=== PATIENT | male | born 1945 | race Caucasian/White ===

== ENCOUNTER 2017-01-06 10:29 | Day surgery (SDC) | payer MEDICARE, OTHER ==
[~2017-01-06] VITALS: Ht 172.7 cm; Wt 128.4 kg
[~2017-01-06 10:29] MED LIST: 0.9% Sodium Chloride 1,000 ML IV SCH; ATOR40TA69 PO; GLIP10TA10 PO; HYG25 PO; LISI40TA PO; METF1000 PO; PIOG45TA18 PO; Sodium Chloride LOK Flush 10 mL Syringe IV PRN; fentaNYL-PF 50 mCg/mL 2 mL Inj IVPUSH PRN
[2017-01-06] MEDS ORDERED: fentaNYL-PF 50 mCg/mL 2 mL Inj ONE (10:30)
[2017-01-06] MEDS ORDERED: Propofol 10,000 mCg/mL 20 mL Inj ONE (10:30)
[2017-01-06 11:00] VITALS: BP 118/71; PULSE 76; RESP 16; O2SAT 92
--- NOTE | 2017-01-06 11:15 | PCM.HPANE ---
Patient Data Surgeon Admitting Provider: Attending Provider:Grover Charles MD Primary Care Physician:Reji Mike MD Other Provider: Reason for Visit Screening Colonoscopy Ht/WT & BMI Height (Feet): 5 Height (Inches): 8 Weight (Kilograms): 128.37 Body Mass Index 42.00 Allergies Coded Allergies: No Known Drug Allergies (Verified Allergy, Unknown, 01/06/17) Past Anesthesia History Anesthesia History: Denies:: Abnormal Airway, Anesthesia Reactions, Difficult Intubation, Fam Anesthesia Reaction, Fam Malignant Hypertherm, Malignant Hyperthermia Diabetes History Hx Diabetes?: Yes Current Bedside Blood Glucose: 145 MRSA MRSA: No Medications Hypertension Medication: Yes Home Meds Incl Beta Pancho: No Reported Medications Pioglitazone 45 Mg [id number] Mg PO DAILY Ref 0 01/05/17 Metformin (Glucophage)1,000 Mg Tablet1,000 Mg PO BID Ref 0 01/05/17 Lisinopril 40 Mg [id number] Mg PO DAILY 30 Days Ref 0 01/05/17 Glipizide 10 Mg [id number] Mg PO BID 30 Days 01/05/17 Chlorthalidone 25 Mg [id number] Mg PO DAILY #30 TABLET 01/05/17 Atorvastatin Calcium 40 Mg [id number] Mg PO DAILY Ref 0 01/05/17 History HEENT History: Denies:: Abnormal Airway Difficult Intubation Dysphagia Hearing Problem Hx of Heart Problems?: Yes Cardiovascular History: Positive for:: Hypertension Denies:: AICD Atrial Fibrillation Chest Pain Pacemaker Valvular Heart Disease Other Cardiac History: NO history of CAD Hx of Respiratory Problem?: No Respiratory History: Denies:: Asthma COPD Cough Hemoptysis Pneumonia Tuberculosis Hx Neurologic Problems?: No Neurological History: Denies:: CVA Hx of GI Problems?: Yes Gastrointestinal History: Denies:: Cirrhosis Diverticulitis Gall Bladder Disease Gastroesphageal Reflux Hiatal Hernia Liver Disease Rectal Bleeding Hx of Problems?: No Musculoskeletal History: Denies:: Fibromyalgia Joint Replacement Psycho Social History: Denies:: Anxiety Hx Depression Hx Surgeries?: Yes (APPY) Hx Any Other Health Problems?: Yes Hx Diabetes: YesBedside Blood Glucose: 145 Other Pertinent History: DIABETES-TYPE II Hx Alcohol Use: No Stop/Bang Treated for Sleep Apnea?: No (SCHEDULED FOR A SLEEP STUDY) Do You Have a CPAP Machine?: No S-Snoring: Do You Snore Loudly: Yes T-Tired: feel tired, fatigued: Yes O-Obsered: Observed not breath: Yes P-Blood Pressure: treated: Yes B- Body Mass Index > 35 kg/m2: Yes A- Age over 50: Yes N- Neck Large Circumference: Yes G- Gender Male: Yes EPIFANIO Total Score: 8 EPIFANIO Risk Assessment: High Risk, =/>3 Yes Risk Assessment Category Category 1A: Patient has history of documented sleep apnea, and HAS NOT received any narcotic, sedative or anesthesia administration during this stay. Category 1B: Patient has history of documented sleep apnea, and HAS received any narcotic , sedative or anesthesia administration during this stay Category 2: Patient has SUSPECTED Obstructive Sleep Apnea, and HAS received any narcotic , sedative or anesthesia administration during this stay. Category 3: Patient has SUSPECTED Obstructive Sleep Apnea and HAS NOT received narcotic, sedative or anesthesia administration during this stay. Category 4: Outpatient in Procedural Areas with known sleep apnea or who screen positive for High Risk via the STOP/BANG questionnaire. Exam Exam Vital Signs Vital Signs Date Time Temp Pulse Resp B/P Pulse Ox O2 Delivery O2 Flow Rate FiO2 01/06/17 11:00 76 16 118/71 92 Room Air General Appearance: Alert, Oriented X3, Cooperative, No Acute Distress HEENT/AIRWAY: MP 2, Other (thick neck) Lungs: Clear to Auscultation, Normal Air Movement Heart: Exam Unremarkable, Regular Rate/Rhythm, No Murmurs/Rubs/Gallops Meds/Labs/Diagnostics Bedside Blood Glucose: 145 Plan Impression Patient chart reviewed, patient interviewed and anesthestic plan with risks, benefits, and alternatives discussed, and informed consent obtained. ASA Physical Status: ASA3 Severe Disease Anesthetic Plan: GA, MAC Bene/Risks/Altern/Consents: Yes HP Complete Prior to Induction: Yes Raghu Riggs MD Jan 06, 2017 11:15
[2017-01-06] MEDS ORDERED: Lactated Ringer's 1,000 ML IV SCH (11:16)
[2017-01-06] MEDS ORDERED: Ondansetron 2 mg/mL 2 mL Inj IVPUSH PRN (11:20)
[2017-01-06] MEDS ORDERED: MetoCLOpramide 5 mg/mL 2 mL Inj IVPUSH PRN (11:20)
[2017-01-06] MEDS: Lactated Ringer's 1,000 ML IV SCH ×2 (11:57→12:06)
--- NOTE | 2017-01-06 12:17 | PCM.ENDCOL ---
Colonoscopy Date of Service: Jan 06, 2017 Physician Grover Charles MD Pre Procedure Diagnosis: Screening Post Procedure Dx & Findings: Polyp hemorrhoids diverticuli Procedure Colonoscopy PROCEDURE IN DETAIL: Prep fair at best Withdrawal time 10 minutes After unremarkable rectal examination the Olympus video colonoscope was inserted patient's anal canal and was advanced to cecum. Landmarks were identified including the ileocecal valve and appendiceal orifice. Scope was withdrawn systematically. Visualized colonic mucosa showed healthy shiny mucosa with normal healthy-appearing vasculature. In the descending colon there was a 3 mm polyp which was removed completely using cold snare. Several small to medium sized diverticuli noted in the sigmoid and the descending colon. In the rectum retroflexion was done which showed hemorrhoids. Anal canal was inspected carefully on the way out and hemorrhoids noted. Impression Polyp 1 status post complete removal Diverticuli Hemorrhoids Prep fair at best Recommendation Repeat colonoscopy in 1 year with a 2 day prep Diverticular diet Presedation Assessment Risks and Benefits Informed consent was obtained from the patient after all risks and benefits including but not limited to drug reaction, infection, pain, bleeding, perforation, as well as alternatives were discussed. Patient monitoring Continuous pulse oximetry, cardiac monitoring, blood pressure monitoring, IV access, and oxygen at 2L per nasal cannula. Complications There were no periprocedural complications identified. Post Procedure Plan Post Procedure Recommendations 1. Restrict activities today. 2. Resume normal activities in the morning. 3. Resume medications. 4. Patient informed of normal post procedure side effects as bloating, drowsiness, blood streaking in the stool. 5. average risk CRCS. If colon polyps come back as: -Hyperplastic- can repeat colonoscopy in 10 years -Tubular adenoma- repeat colonoscopy in 5 years -Tubulovillous/villous adenoma- repeat colonoscopy in 3 years -If any dysplasia- return to clinic as soon as possible 6. Please don't hesitate to call me with any questions. Grover Charles MD Jan 06, 2017 12:17
[2017-01-06 12:20] VITALS: BP 133/83; PULSE 76; RESP 18; O2SAT 92
--- NOTE | 2017-01-06 12:23 | PCM.ANEP2 ---
Post Anesthesia Evaluation ASA/CMS Post Anesthesia VS in Patient's Normal Range?: Yes Resp Stable; Airway Patent?: Yes CV Function & Hydration Stable: Yes Mental Status Recovered?: Yes Pain control Satisfactory?: Yes N/V Control Satisfactory?: Yes Additional Comments Recommend formal sleep study prior to any future elective procedures. Raghu Riggs MD Jan 06, 2017 12:23
--- NOTE | 2017-01-06 12:23 | PCM.ANEP1 ---
Post Anesthesia Phase 1 PACU Phase 1 Assessment Date of Service: Jan 06, 2017 Vital Signs Vital Signs Date Time Temp Pulse Resp B/P Pulse Ox O2 Delivery O2 Flow Rate FiO2 01/06/17 12:20 76 18 133/83 92 Nasal Cannula 4 01/06/17 11:00 76 16 118/71 92 Room Air Anesthetic Administered: GA Level of Alertness: Sleepy, easy to arouse RIVERA's with Equal Strength: Yes Pain: No Nausea or Vomiting: No Oxygen Delivery: Nasal Cannula Lungs: Clear to Auscultation, Normal Air Movement Raghu Riggs MD Jan 06, 2017 12:22
[2017-01-06 12:30] VITALS: BP 128/73; PULSE 76; RESP 16; O2SAT 93
[2017-01-06 12:40] VITALS: BP 104/72; PULSE 73; RESP 16; O2SAT 90
--- NOTE | 2017-01-09 10:46 | PATH ---
SURGICAL PATHOLOGY Attending Physician:Grover Charles M.D. CASE STATUS: Signed Out PATIENT NAME: JEANNE VALDES PID: [id number] : 1945 DATE COLLECTED:01/06/2017 19:32 SPECIMEN: Colon, Biopsy CLINICAL HISTORY: 1). DESCENDING COLON POLYP FINAL DIAGNOSIS: 1.DESCENDING COLON POLYP: TUBULAR ADENOMA. ICD10 CODE D12.4 GROSS DESCRIPTION: The specimen is received in one formalin filled container labeled with the patient's name, sublabeled "descending colon polyp" and consists of a 0.5 x 0.4 x 0.3 CM portion of tissue which is entirely submitted in one cassette. 01/06/2017 DAC MICRO DESCRIPTION: See diagnosis. ICD-9 CODES: CPT CODES: 1: 11925 Electronically Signed Out Clive Rob MD [facility]ly [facility] Pathology [facility] [address], [place] [address] Technical component performed at [facility], [address] [place] [address] Ave[address], [place], [address]
== END 2017-01-06 23:59 | disposition home or self-care (01) ==
LOC: END 10:29
PROVIDERS: ATTEND Internal Medicine
DX: Z12.11 Encounter for screening for malignant neoplasm of colon (principal); D12.4 Benign neoplasm of descending colon; K57.30 Diverticulosis of large intestine without perforation or abscess without bleeding; K64.9 Unspecified hemorrhoids; I12.9 Hypertensive chronic kidney disease with stage 1 through stage 4 chronic kidney disease, or unspecified chronic kidney disease; N18.2 Chronic kidney disease, stage 2 (mild); E78.5 Hyperlipidemia, unspecified; E11.9 Type 2 diabetes mellitus without complications; M54.9 Dorsalgia, unspecified; E66.01 Morbid (severe) obesity due to excess calories; D64.9 Anemia, unspecified; Z68.41 Body mass index [BMI] 40.0-44.9, adult; Z79.84 Long term (current) use of oral hypoglycemic drugs; Z87.891 Personal history of nicotine dependence
CPT/HCPCS: 45385; 88305; J3010; J7120